=== PATIENT | male | born 1975 | race Caucasian/White ===

== ENCOUNTER 2017-12-01 08:44 | Outpatient (CLI) | payer BC ==
[2017-12-01] MEDS ORDERED: BARIUM SULFATE 135 ML SUSP.RECON (E-Z-HD) PO ONE (09:17)
== END 2017-12-01 18:44 | disposition home or self-care (01) ==
LOC: SRD 08:44
PROVIDERS: ATTEND Otolaryngology
DX: K21.9 Gastro-esophageal reflux disease without esophagitis (principal); K20.9 Esophagitis, unspecified
CPT/HCPCS: 74220-TC

== ENCOUNTER 2020-01-04 18:23 | Emergency (ER) | payer BC ==
[~2020-01-04] VITALS: Ht 175.3 cm; Wt 84.4 kg
--- NOTE | 2020-01-04 18:26 | NUR ---
Placed in room 01 . Placed on teletypesetter monitor, blood pressure machine and pulse oximeter. To gown for exam. Side rails up.
[2020-01-04 18:27] VITALS: BP_SYST 120
--- NOTE | 2020-01-04 18:30 | NUR ---
Patient presented to ER C/O Foreign body. Patient BIB BLS, A&Ox4, ambulatory, afebrile, skin pink & warm, pain 5/10, denies diarrhea vomiting, anxious. Patient states he was eating steak prior to ER arrival. PT reports GI surgical procedure "band placement on esophogus fot GERD".
--- NOTE | 2020-01-04 18:31 | NUR ---
ER Dr. Chavez at bedside examining patient.
[2020-01-04] MEDS ORDERED: ONDANSETRON HCL 4 MG/2 ML VIAL IVP ONE (18:45)
[2020-01-04] MEDS ORDERED: NACL 0.9% 1,000 ML IV ONE (18:45)
[2020-01-04] MEDS ORDERED: NITROGLYCERIN 0.4 MG TAB.SUBL SL ONE (18:45)
[2020-01-04] MEDS ORDERED: GLUCAGON,HUMAN RECOMBINANT 1 MG VIAL IVP ONE (18:45)
--- NOTE | 2020-01-04 19:05 | NUR ---
REPORT TO ARLENE SALMON
--- NOTE | 2020-01-04 19:11 | NUR ---
Report received from VIKY Garcia for continuation of care.
[2020-01-04 19:54] VITALS: BP_SYST 122
--- NOTE | 2020-01-04 19:54 | NUR ---
dPatient given written and verbal discharge instructions and verbalizes understanding. ER MD discussed with patient the results and treatment provided. Patient in stable condition. ID arm band removed. Patient educated on pain management and to follow up with PMD. Opportunity for questions provided and answered. Medication side effect fact sheet provided.
== END 2020-01-04 19:54 | disposition home or self-care (01) ==
LOC: SED 18:23
DX: T18.128A Food in esophagus causing other injury, initial encounter (principal); K21.9 Gastro-esophageal reflux disease without esophagitis; Z88.0 Allergy status to penicillin; Z88.6 Allergy status to analgesic agent; W22.8XXA Striking against or struck by other objects, initial encounter; Y93.89 Activity, other specified; Y92.89 Other specified places as the place of occurrence of the external cause; Y99.8 Other external cause status
CPT/HCPCS: 93005; 96361; 96374; 96375; 99284; J1610; J2405; J7030

== ENCOUNTER 2020-02-09 15:29 | Emergency (ER) | payer BC ==
[~2020-02-09] VITALS: Ht 170.2 cm; Wt 81.6 kg
[2020-02-09 15:40] VITALS: BP_SYST 144
[2020-02-09] MEDS ORDERED: GLUCAGON,HUMAN RECOMBINANT 1 MG VIAL IVP ONE (15:45)
[2020-02-09] MEDS ORDERED: LORazepam 2 MG/ML VIAL IVP ONE (15:45)
[2020-02-09] MEDS ORDERED: ONDANSETRON HCL 4 MG/2 ML VIAL IVP ONE (15:45)
[2020-02-09] MEDS ORDERED: NITROGLYCERIN 0.4 MG TAB.SUBL SL ONE (16:45)
[2020-02-09 17:09] VITALS: BP_SYST 144
== END 2020-02-09 17:10 | disposition home or self-care (01) ==
LOC: SED 15:29
DX: T18.198A Other foreign object in esophagus causing other injury, initial encounter (principal); K21.9 Gastro-esophageal reflux disease without esophagitis; Z88.0 Allergy status to penicillin; Z88.6 Allergy status to analgesic agent; X58.XXXA Exposure to other specified factors, initial encounter; Y93.89 Activity, other specified; Y92.89 Other specified places as the place of occurrence of the external cause; Y99.8 Other external cause status
CPT/HCPCS: 96374; 96375; 99284